=== PATIENT | male | born 1965 | race Caucasian/White ===

== ENCOUNTER 2016-11-18 11:35 | Emergency (ER) | payer BC ==
[~2016-11-18] VITALS: Ht 177.8 cm; Wt 90.0 kg
[2016-11-18 11:37] VITALS: BP 112/74; PULSE 102; RESP 17; TEMP 97.7; O2SAT 95
--- NOTE | 2016-11-18 12:11 | PD ---
HPI Chief Complaint: Syncope/Near-Syncope Time Seen by Provider: 12:08 Travel History International Travel<30 days: No Contact w/Intl Traveler<30days: No Traveled to known affect area: No History of Present Illness HPI Patient is a 51-year-old male presenting to emergency department for evaluation of a syncopal episode. Patient states he woke up this morning feeling nauseated and diaphoretic, subsequently waking up on the floor and has a bruise to his backside from passing out. Patient is uncertain how long he was out for. He denies any shortness of breath, chest pain, vomiting, diarrhea, recent illnesses, drug or alcohol abuse. He did have 3 beers last night, he is here on vacation for bi week. Patient denies any significant past medical history , negative for tobacco or illicit drug use. He is currently reporting a headache and continues to feel nauseated. [facility] Past Medical History Medical History: Denies Significant Hx Past Surgical History Surgical History: No Previous Surgery Social History Alcohol Use: Yes Tobacco Use: No Substance Use: No Allergies-Medications (Allergen,Severity, Reaction): Coded Allergies: No Known Allergies (Unverified , 11/18/16) Review of Systems Except as stated in HPI: all other systems reviewed are Neg HENT: Positive: Headaches Cardiovascular: Positive: Diaphoresis, Syncope, No: Chest Pain or Discomfort Respiratory: No: Shortness of Breath Gastrointestinal: Positive: Nausea, No: Abdominal Pain Genitourinary: No: Dysuria Physical Exam Narrative GENERAL: Well-developed, well-nourished, alert male. Resting comfortably in no acute distress. SKIN: Warm and dry. HEAD: Atraumatic. Normocephalic. EYES: Pupils equal and round. No scleral icterus. No injection or drainage. ENT: No nasal bleeding or discharge. Mucous membranes pink and moist. NECK: Trachea midline. No JVD. CARDIOVASCULAR: Regular rate and rhythm. No murmur appreciated. RESPIRATORY: No accessory muscle use. Clear to auscultation. Breath sounds equal bilaterally. GASTROINTESTINAL: Abdomen soft, non-tender, nondistended. Hepatic and splenic margins not palpable. MUSCULOSKELETAL: No obvious deformities. No clubbing. No cyanosis. No edema. NEUROLOGICAL: Awake and alert. No obvious cranial nerve deficits. Motor grossly within normal limits. Normal speech. PSYCHIATRIC: Appropriate mood and affect; insight and judgment normal. Data Data Last Documented VS Vital Signs Date Time Temp Pulse Resp B/P Pulse Ox O2 Delivery O2 Flow Rate FiO2 11/18/16 13:38 99 Room Air 11/18/16 11:37 97.7 102 17 112/74 Orders Complete Blood Count With Diff (11/18/16 12:06) Comprehensive Metabolic Panel (11/18/16 12:06) Magnesium (Mg) (11/18/16 12:06) Ckmb (Isoenzyme) Profile (11/18/16 12:06) Troponin I (11/18/16 12:06) Act Partial Throm Time (Ptt) (11/18/16 12:06) Prothrombin Time / Inr (Pt) (11/18/16 12:06) Urinalysis - C+S If Indicated (11/18/16 12:06) Chest, Pa & Lat (11/18/16 12:06) Ct Brain W/O Iv Contrast(Rout) (11/18/16 12:06) CKMB (11/18/16 12:49) CKMB% (11/18/16 12:49) Electrocardiogram (11/18/16 13:47) Labs Laboratory Tests Test 11/18/16 11/18/16 12:15 12:49 Urine Color YELLOW Urine Turbidity HAZY Urine pH 5.0 Urine Specific Elaine 1.022 Urine Protein TRACE mg/dL Urine Glucose (UA) NEG mg/dL Urine Ketones NEG mg/dL Urine Occult Blood NEG Urine Nitrite NEG Urine Bilirubin NEG Urine Urobilinogen LESS THAN 2.0 MG/DL Urine Leukocyte Esterase NEG Urine RBC LESS THAN 1 /hpf Urine WBC 3 /hpf Urine Squamous Epithelial <1 /hpf Cells Urine Bacteria RARE /hpf Urine Mucus MANY /lpf Microscopic Urinalysis Comment CULT NOT INDICATED White Blood Count 8.9 TH/MM3 Red Blood Count 4.64 MIL/MM3 Hemoglobin 14.6 GM/DL Hematocrit 41.9 % Mean Corpuscular Volume 90.4 FL Mean Corpuscular Hemoglobin 31.5 PG Mean Corpuscular Hemoglobin 34.9 % Concent Red Cell Distribution Width 12.8 % Platelet Count 147 TH/MM3 Mean Platelet Volume 8.6 FL Neutrophils (%) (Auto) 87.0 % Lymphocytes (%) (Auto) 8.4 % Monocytes (%) (Auto) 4.1 % Eosinophils (%) (Auto) 0.2 % Basophils (%) (Auto) 0.3 % Neutrophils # (Auto) 7.8 TH/MM3 Lymphocytes # (Auto) 0.8 TH/MM3 Monocytes # (Auto) 0.4 TH/MM3 Eosinophils # (Auto) 0.0 TH/MM3 Basophils # (Auto) 0.0 TH/MM3 CBC Comment DIFF FINAL Differential Comment Prothrombin Time 11.0 SEC Prothromb Time International 1.0 RATIO Ratio Activated Partial 23.5 SEC Thromboplast Time Sodium Level 141 MEQ/L Potassium Level 4.3 MEQ/L Chloride Level 107 MEQ/L Carbon Dioxide Level 23.5 MEQ/L Anion Gap 11 MEQ/L Blood Urea Nitrogen 15 MG/DL Creatinine 0.90 MG/DL Estimat Glomerular Filtration 89 ML/MIN Rate Random Glucose 112 MG/DL Calcium Level 8.9 MG/DL Magnesium Level 1.9 MG/DL Total Bilirubin 0.4 MG/DL Aspartate Amino Transf 27 U/L (AST/SGOT) Alanine Aminotransferase 66 U/L (ALT/SGPT) Alkaline Phosphatase 45 U/L Total Creatine Kinase 138 U/L Creatine Kinase MB 0.7 NG/ML Troponin I LESS THAN 0.02 NG/ML Total Protein 7.7 GM/DL Albumin 4.2 GM/DL MDM Medical Decision Making Medical Screen Exam Complete: Yes Emergency Medical Condition: Yes Interpretation(s) Vital Signs Date Time Temp Pulse Resp B/P Pulse Ox O2 Delivery O2 Flow Rate FiO2 11/18/16 11:37 97.7 102 17 112/74 95 Differential Diagnosis Vertigo versus orthostatic hypotension versus cardiac arrhythmia versus lead joint abnormality versus TIA versus viral syndrome versus hypoglycemia versus other Narrative Course Patient is a 51-year-old male presenting to emergency department for evaluation of a syncopal episode this morning. Episode was unwitnessed and was accompanied by nausea and diaphoresis. Patient has no significant past medical history. EKG, chest x-ray, CT scan, labs ordered and pending. Workup initiated in triage, care patient will be transferred to a provider when a medical bed is available. Colleen Kaye Nov 18, 2016 12:11
--- NOTE | 2016-11-18 12:47 | RADRPT ---
EXAM DATE/TIME: 11/18/2016 12:29 [facility] COMPARISON: No previous studies available for comparison. INDICATIONS : Patient had a snycopal episode today. MEDICAL HISTORY : None. SURGICAL HISTORY : None. ENCOUNTER: Initial ACUITY: 1 day PAIN SCORE: 0/10 LOCATION: Bilateral chest FINDINGS: PA and lateral views of the chest demonstrate the lungs to be symmetrically aerated without evidence of mass, infiltrate or effusion. The cardiomediastinal contours are unremarkable. Osseous structure s are intact. CONCLUSION: No acute disease. Jonel Del Toro MD on November 18, 2016 at 12:45 Board Certified Radiologist. This report was verified electronically.
--- NOTE | 2016-11-18 12:56 | RADRPT ---
EXAM DATE/TIME: 11/18/2016 12:37 [facility] COMPARISON: No previous studies available for comparison. INDICATIONS : Luciano became nauseous this mornin,then passed out,slight headache. RADIATION DOSE: 41.13 CTDIvol (mGy) MEDICAL HISTORY : None SURGICAL HISTORY : None. ENCOUNTER: Initial ACUITY: 1 day PAIN SCALE: 3/10 LOCATION: cranial TECHNIQUE: Multiple contiguous axial images were obtained of the head. Using automated exposure control and adj ustment of the mA and/or kV according to patient size, radiation dose was kept as low as reasonably a chievable to obtain optimal diagnostic quality images. FINDINGS: CEREBRUM: The ventricles are normal for age. No evidence of midline shift, mass lesion, hemorrhage or acute in farction. No extra-axial fluid collections are seen. POSTERIOR FOSSA: The cerebellum and brainstem are intact. The 4th ventricle is midline. The cerebellopontine angle i s unremarkable. EXTRACRANIAL: The visualized portion of the orbits is intact. SKULL: The calvaria is intact. No evidence of skull fracture. CONCLUSION: No acute disease. Joselito Gillespie MD on November 18, 2016 at 12:52 Board Certified Radiologist. This report was verified electronically.
[2016-11-18 13:07] LABS: AUTOMATED NEUTROPHIL # 7.8 TH/MM3 (1.8-7.7); BASOPHIL % 0.3 % (0.0-2.0); EOSINOPHIL % 0.2 % (0.0-4.0); HEMATOCRIT 41.9 % (39.0-51.0); HEMO FLAGS DIFF FINAL; LYMPH % 8.4 % (9.0-44.0); LYMPHOCYTE # 0.8 TH/MM3 (1.0-4.8); MEAN CELL VOLUME 90.4 FL (80.0-100.0); MEAN CORPUSCULAR HEMOGLOBIN 31.5 PG (27.0-34.0); MEAN CORPUSCULAR HGB CONC 34.9 % (32.0-36.0); MONO % 4.1 % (0.0-8.0); PLATELET COUNT 147 TH/MM3 (150-450); RED BLOOD COUNT 4.64 MIL/MM3 (4.50-5.90); RED CELL DISTRIBUTION WIDTH 12.8 % (11.6-17.2); WHITE BLOOD COUNT 8.9 TH/MM3 (4.0-11.0)
[2016-11-18 13:16] LABS: BACTERIA, URINE RARE /hpf; BLOOD, URINE NEG (NEG); COMMENT (UR) CULT NOT INDICATED; CULTURE IF INDICATED CULT NOT INDICATED; GLUCOSE,URINE NEG (NEG); KETONE, URINE NEG (NEG); MUCUS URINE MANY /lpf (OCC); NITRITE,URINE NEG (NEG); SQUAMOUS EPITHELIAL CELL URINE <1 /hpf (0-5); URINE COLOR YELLOW (YELLW/STRAW)
[2016-11-18 13:17] LABS: APTT (PATIENT) 23.5 SEC (24.3-30.1)
[2016-11-18 13:28] LABS: ALT (GPT) 66 U/L (12-78); ANION GAP 11 MEQ/L (5-15); AST (GOT) 27 U/L (15-37); BICARBONATE 23.5 MEQ/L (21.0-32.0); BLOOD UREA NITROGEN 15 MG/DL (7-18); CHLORIDE 107 MEQ/L (98-107); GLOMERULAR FILTRATION RATE 89 ML/MIN (>89); MAGNESIUM 1.9 MG/DL (1.5-2.5); POTASSIUM 4.3 MEQ/L (3.5-5.1); SODIUM (NA) 141 MEQ/L (136-145)
[2016-11-18 13:32] LABS: ALKALINE PHOSPHATASE 45 U/L (45-117); CREATINE KINASE 138 U/L (39-308); TOTAL BILIRUBIN ADULT 0.4 MG/DL (0.2-1.0)
[2016-11-18 13:44] LABS: CKMB 0.7 NG/ML (0.5-3.6)
--- NOTE | 2016-11-18 14:07 | PD ---
Physical Exam Time Seen by Provider: 13:57 Narrative 51-year-old male presents to the emergency department for evaluation of presyncope. Patient was seen by provider in triage are initiated workup, please see her documentation. The patient states he is here visiting from out of town. States that he flew down from [place] a few days ago, only a 2 hour flight. States that this morning when he woke up he felt lightheaded. States that he when a breakfast and then took a shower and continued to feel lightheaded. States that while he was showering he felt as though he was going to pass out so he got out of the shower and sat down. States that this improved his lightheadedness. States that he thought he was feeling better so he stood up to walk and began to feel lightheaded again losing his balance a little falling back onto the wall which is why he has a bruise on his back. States that he did not lose consciousness, remembers the entire series of events. States that a few minutes after he slid down the wall he was able to get up and find his friends who called EMS. He is currently complaining of a mild headache with very slight nausea. He denies any episodes of chest pain, shortness of breath, vomiting, diarrhea, abdominal pain, numbness or tingling, one-sided weakness, vision changes. Denies any family history of sudden cardiac or heart disease. Denies any personal history of heart disease. Denies any drug use. States he drank 3 beers last night. The patient does admit that he is been here for the past several days and has not been drinking very much water, has had only tea and a few beers, he typically drinks a large amount of water. No other complaints. GENERAL: Well-nourished and well-developed pleasant patient in no acute distress who is nontoxic appearing. SKIN: Warm and dry. HEAD: Normocephalic and atraumatic. EYES: No injection, drainage, or hyphema noted. PERRLA. EOMI. ENT: No nasal drainage noted. Oropharynx is clear. NECK: Supple and the trachea is midline. CARDIOVASCULAR: Regular rate and rhythm. RESPIRATORY: Breath sounds are equal bilaterally with no accessory muscle use, wheezing, rhonchi, or crackles. GASTROINTESTINAL: Abdomen is soft, non-tender, and nondistended. MUSCULOSKELETAL: No obvious deformities, swelling, cyanosis, or ecchymosis is present throughout the upper and lower extremities. Patient has full range of motion without any signs of neurovascular compromise. NEUROLOGICAL: Awake, alert, and oriented. Normal speech and gait. Cranial nerves are grossly intact. Data Data Last Documented VS Vital Signs Date Time Temp Pulse Resp B/P Pulse Ox O2 Delivery O2 Flow Rate FiO2 11/18/16 13:38 99 Room Air 11/18/16 11:37 97.7 102 17 112/74 Orders Complete Blood Count With Diff (11/18/16 12:06) Comprehensive Metabolic Panel (11/18/16 12:06) Magnesium (Mg) (11/18/16 12:06) Ckmb (Isoenzyme) Profile (11/18/16 12:06) Troponin I (11/18/16 12:06) Act Partial Throm Time (Ptt) (11/18/16 12:06) Prothrombin Time / Inr (Pt) (11/18/16 12:06) Urinalysis - C+S If Indicated (11/18/16 12:06) Chest, Pa & Lat (11/18/16 12:06) Ct Brain W/O Iv Contrast(Rout) (11/18/16 12:06) CKMB (11/18/16 12:49) CKMB% (11/18/16 12:49) Electrocardiogram (11/18/16 13:47) Labs Laboratory Tests Test 11/18/16 11/18/16 12:15 12:49 Urine Color YELLOW Urine Turbidity HAZY Urine pH 5.0 Urine Specific [place] 1.022 Urine Protein TRACE mg/dL Urine Glucose (UA) NEG mg/dL Urine Ketones NEG mg/dL Urine Occult Blood NEG Urine Nitrite NEG Urine Bilirubin NEG Urine Urobilinogen LESS THAN 2.0 MG/DL Urine Leukocyte Esterase NEG Urine RBC LESS THAN 1 /hpf Urine WBC 3 /hpf Urine Squamous Epithelial <1 /hpf Cells Urine Bacteria RARE /hpf Urine Mucus MANY /lpf Microscopic Urinalysis Comment CULT NOT INDICATED White Blood Count 8.9 TH/MM3 Red Blood Count 4.64 MIL/MM3 Hemoglobin 14.6 GM/DL Hematocrit 41.9 % Mean Corpuscular Volume 90.4 FL Mean Corpuscular Hemoglobin 31.5 PG Mean Corpuscular Hemoglobin 34.9 % Concent Red Cell Distribution Width 12.8 % Platelet Count 147 TH/MM3 Mean Platelet Volume 8.6 FL Neutrophils (%) (Auto) 87.0 % Lymphocytes (%) (Auto) 8.4 % Monocytes (%) (Auto) 4.1 % Eosinophils (%) (Auto) 0.2 % Basophils (%) (Auto) 0.3 % Neutrophils # (Auto) 7.8 TH/MM3 Lymphocytes # (Auto) 0.8 TH/MM3 Monocytes # (Auto) 0.4 TH/MM3 Eosinophils # (Auto) 0.0 TH/MM3 Basophils # (Auto) 0.0 TH/MM3 CBC Comment DIFF FINAL Differential Comment Prothrombin Time 11.0 SEC Prothromb Time International 1.0 RATIO Ratio Activated Partial 23.5 SEC Thromboplast Time Sodium Level 141 MEQ/L Potassium Level 4.3 MEQ/L Chloride Level 107 MEQ/L Carbon Dioxide Level 23.5 MEQ/L Anion Gap 11 MEQ/L Blood Urea Nitrogen 15 MG/DL Creatinine 0.90 MG/DL Estimat Glomerular Filtration 89 ML/MIN Rate Random Glucose 112 MG/DL Calcium Level 8.9 MG/DL Magnesium Level 1.9 MG/DL Total Bilirubin 0.4 MG/DL Aspartate Amino Transf 27 U/L (AST/SGOT) Alanine Aminotransferase 66 U/L (ALT/SGPT) Alkaline Phosphatase 45 U/L Total Creatine Kinase 138 U/L Creatine Kinase MB 0.7 NG/ML Troponin I LESS THAN 0.02 NG/ML Total Protein 7.7 GM/DL Albumin 4.2 GM/DL [facility] Supervised Visit with CASIMIRO: No Differential Diagnosis Pre-syncope versus orthostatic hypotension versus dehydration Narrative Course 51-year-old male presents to the emergency department for evaluation of presyncopal symptoms that occurred this morning. Patient is afebrile. He is initially slightly tachycardic with a heart rate of 102 bpm. Right now the patient's heart rate is 93 bpm, he has been drinking fluids orally since he came to the emergency department. Physical examination is unremarkable. No focal neurologic deficits. Patient was seen by triage provider who ordered initial imaging and laboratory studies. CBC is unremarkable. CMP is unremarkable. Troponin is less than 0.02. Coags are unremarkable. Urinalysis is unremarkable. X-rays negative for any acute abnormalities. Head CT is negative for any acute abnormalities. EKG shows sinus rhythm with no acute ST elevations or depressions, with normal intervals. Patient reports that he is feeling much better now, has only a very slight headache. He's had no further episodes of lightheadedness or presyncope. I suspect that the patient's symptoms are likely secondary to mild dehydration. He's been orally hydrating while here in the ED. I did encourage him to push fluids at home. He is stable for discharge. Discussed signs and symptoms of when to return to the emergency department. Patient verbalizes understanding and is in agreement with treatment plan. I discussed the case with my attending physician Dr. Hernandez who is aware of the patients history, physical examination findings, and treatment plan. Diagnosis Primary Impression: Near syncope Referrals: Primary Care Physician Patient Instructions: General Instructions, Near Syncope (ED) Additional Instruction: Drink plenty of fluids. Follow-up with your Primary Care Physician. Return to the ED for any acute worsening of symptoms such as chest pain, shortness of breath, syncope. Med/Other Pt SpecificInfo: No Change to Meds Disposition: 01 DISCHARGE HOME Condition: Stable Chaparrita Sue Nov 18, 2016 14:07
--- NOTE | 2016-11-19 20:19 | EKG ---
Date Performed: 11/18/2016 Time Performed: 14:23:09 PTAGE: 51 years EKG: Sinus rhythm NORMAL ECG NO PREVIOUS TRACING DOCTOR: Sheyla Hills Interpretating Date/Time 11/19/2016 20:17:33
== END 2016-11-18 16:09 | disposition home or self-care (01) ==
LOC: NEPC 11:35
DX: R55 Syncope and collapse (principal); R11.0 Nausea; R51 Headache; R61 Generalized hyperhidrosis
CPT/HCPCS: 70450; 71020; 80053; 81001; 82550; 82552; 83735; 84484; 85025; 85610; 85730; 93005